=== PATIENT | male | born 1995 | race African-American/Black ===

== ENCOUNTER → 2020-07-20 | Emergency (ER) | payer OTHER ==
[~2020-07-20] VITALS: Ht 172.7 cm; Wt 70.3 kg
[~2020-07-20] MED LIST: HUMALOG100 UNIT/2 SQ; NEXIUM40 MG PO; NOVOLIN N100 UNIT/3 SUBQ; NOVOLIN R100 UNIT/1 SUBQ; NOVOLOG100 UNIT/1 SUBQ; PANTOPRAZOLE SO40 M1 PO; PEPCID20 MG PO; PRILOSEC 20 MG20 MG PO; PROMS25 WY RECTAL; PROTONIX40 MG PO; REGLAN 10 MG TA10 MG PO; REGLAN 5 MG TAB5 MG PO; ZOFRAN ODT4 MG DISSOLVE; ZOFRAN ODT8 MG PO
[2020-07-20 14:01] VITALS: BP 158/103
--- NOTE | 2020-07-21 09:28 | EKG ---
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[facility] : 1995 Requested By: Raysa Cordova Order Number: [id number] MD: Hiram Oh Measurements Intervals [place] Rate: 107 P: 83 [place]: 135 QRS: 72 QRSD: 79 T: 22 QT: 328 QTc: 438 Interpretive Statements Sinus tachycardia Biatrial enlargement Borderline T wave abnormalities ST elev, probable normal early repol pattern Baseline wander in lead(s) V1,V2 Compared to ECG 11/05/2016 10:16:57 Atrial abnormality now present T-wave abnormality now present ST (T wave) deviation now present Sinus rhythm no longer present Electronically Signed On 07-21-2020 9:28:34 CENTRAL OFFICE TECHNICIAN by Hiram Oh [email or web address] <ELECTRONICALLY SIGNED> By: Hiram Oh MD, [facility] 07/21/20 0928 06 140 Hiram Oh MD, [facility] /EPI
== END ==
LOC: ER 13:57
DX: R07.9 Chest pain, unspecified (principal); R11.0 Nausea; Z53.21 Procedure and treatment not carried out due to patient leaving prior to being seen by health care provider

== ENCOUNTER 2020-11-17 10:38 | Inpatient (IN) | payer OTHER ==
[2020-11-17] VITALS (13 sets, daily range): BP systolic 125–180; BP diastolic 79–108
[~2020-11-17] VITALS: Ht 172.7 cm; Wt 76.4 kg
[2020-11-17 11:14] LABS: HEMOGLOBIN 13.5 gm/dL (14.0-18.0); MCH 29.5 pg (26.0-34.0); MCHC 33.7 g/dL (28.0-37.0); MCV 87.5 fL (80.0-100.0); PLATELET COUNT 352 thou/uL (150-400); RBC 4.57 mil/uL (4.50-6.00); WBC 21.8 thou/uL (4.0-11.0)
[2020-11-17 11:17] LABS: ANION GAP 16 mmol/L (7-16); BUN 16 mg/dL (7-18); CHLORIDE 94 mmol/L (98-107); CO2 23 mmol/L (21-32); CREATININE 1.5 mg/dL (0.7-1.3); GLUCOSE 316 mg/dL (74-106); POTASSIUM 3.6 mmol/L (3.5-5.1); SODIUM 133 mmol/L (136-145)
[2020-11-17 11:23] LABS: ALBUMIN 3.8 g/dL (3.4-5.0); AMYLASE 73 U/L (25-115); DIRECT BILIRUBIN 0.2 mg/dL (<0.1-0.2); LIPASE 52 U/L (73-393); SGOT 22 U/L (15-37); SGPT 23 U/L (30-65); TOTAL BILIRUBIN 0.8 mg/dL (0.2-1.0); TOTAL PROTEIN 7.4 g/dL (6.4-8.2)
[2020-11-17 11:24] LABS: BE(vivo) -3.3 mmol/L (-2 to +3); HCO3 20.3 mmol/L (22.0-26.0); PCO2 VENOUS 32.5 mmHg (41.0-51.0); PO2 VENOUS 41.1 mmHg (35.0-45.0)
[2020-11-17 11:27] LABS: URINE BILIRUBIN NEGATIVE (Negative); URINE BLOOD 2+ (Negative); URINE CLARITY CLEAR; URINE COLOR YELLOW; URINE GLUCOSE-RANDOM* 3+ (Negative); URINE KETONES 2+ (Negative); URINE LEUKOCYTES-REFLEX NEGATIVE (Negative); URINE NITRITE-REFLEX NEGATIVE (Negative); URINE PROTEIN (DIPSTICK) 3+ (Negative); URINE SPECIFIC GRAVITY 1.025 (1.005-1.035); URINE UROBILINOGEN 0.2 E.U./dl (0.2-1.0)
[2020-11-17 11:40] LABS: ABSOLUTE NEUTROPHILS 17.9 thou/uL (1.4-8.2)
[2020-11-17 11:41] LABS: ANISOCYTOSIS SLIGHT
[2020-11-17 12:42] LABS: CASTS None Seen /LPF (None Seen); MUCUS 0-3 Light strn/LPF (None Seen); SQUAMOUS 0-3 Few /LPF (0-3)
[2020-11-17 12:43] LABS: BACTERIA-REFLEX None Seen /HPF (None Seen); CRYSTALS None Seen /LPF (None Seen); URINE RBC 3-10 Few /HPF (0-2); URINE WBC-REFLEX 0-5 Rare /HPF (0-5)
[2020-11-17 13:00] LABS: MAGNESIUM 1.6 mg/dL (1.8-2.4); PHOSPHORUS 3.6 mg/dL (2.6-4.7)
--- NOTE | 2020-11-17 14:30 | NUR ---
PT RECEIVED FROM THE ED VIA THIS RN AND CANDY BAR ATTENDANT ESCORT, PRIOR TO ADMISSION TO ICU, PT HAD REFCEIVED HALDOL FROM ED R/T NAUSEA&HICCUPS PT HAS SINCE BEEN ASLEEP AND HAS BEEN SLEEPING SINCE THEN, DROWSY OF NOW. BLOOD SUGAR UPON ADMISSION TO ICU WAS 348 AND DKA PROTOCOL HAS BEEN INITIATED. PT'S GRANDFATHER FRANCISCO MARTINEZ HAD CALLED AND STATED THAT HE WILL BE THE DESIGNATED PERSONEL FOR THE PT. FRANCISCO INQUIRED WHETHER PT WOULD BE DISCHARGING TODAY TO WHICH RN STATED THAT PT HAS JUST BEEN ADMITTED SO IT WILL HAVE TO BE CONSIDERED AT A LATER TIME. PT HAS BEEN KNOWN TO BEEN SENT HOME FROM [facility] YESTERDAY FOR DKA. RN WILL UPDATE NEEDED
[2020-11-17 15:10] LABS: ANION GAP 14 mmol/L (7-16); BUN 19 mg/dL (7-18); CALCIUM 8.4 mg/dL (8.5-10.1); CHLORIDE 98 mmol/L (98-107); CO2 22 mmol/L (21-32); CREATININE 1.4 mg/dL (0.7-1.3); GLUCOSE 352 mg/dL (74-106); POTASSIUM 4.1 mmol/L (3.5-5.1); SODIUM 134 mmol/L (136-145)
[2020-11-17 15:20] LABS: ALBUMIN 3.5 g/dL (3.4-5.0); MAGNESIUM 1.6 mg/dL (1.8-2.4); PHOSPHORUS 3.6 mg/dL (2.6-4.7); TROPONIN-I <0.06 ng/mL (<0.06)
[2020-11-17 19:39] LABS: CALCIUM 8.6 mg/dL (8.5-10.1); CREATININE 1.3 mg/dL (0.7-1.3); POTASSIUM 3.5 mmol/L (3.5-5.1)
[2020-11-17 19:43] LABS: ALBUMIN 3.3 g/dL (3.4-5.0); MAGNESIUM 2.7 mg/dL (1.8-2.4); PHOSPHORUS 3.2 mg/dL (2.6-4.7)
--- NOTE | 2020-11-17 20:27 | NUR ---
1923 BG 60, CORRECTED WITH 1/2 AMP DEXTROSE AND TURNED INSULIN GT OFF, RECHECK 116, NOTIFIED ABDIEL ROBISON NP OF 1900 LABS AND INTERVENTIONS FOR BG. ANION GAP CLOSED, TO KEEP D5 1/2NS GTT INFUSING AT THIS TIME, KEEP INSULIN OFF, MONIOR BG AND CALL IF NEED TO SWITCH FLUIDS TO NON DEXTROSE CONTAINING FLUIDS.
[2020-11-17 23:31] LABS: CALCIUM 8.4 mg/dL (8.5-10.1); CREATININE 1.4 mg/dL (0.7-1.3); POTASSIUM 4.1 mmol/L (3.5-5.1)
[2020-11-17 23:35] LABS: ALBUMIN 3.3 g/dL (3.4-5.0); MAGNESIUM 2.3 mg/dL (1.8-2.4); PHOSPHORUS 3.7 mg/dL (2.6-4.7)
[2020-11-18] VITALS (23 sets, daily range): BP systolic 138–188; BP diastolic 78–116
--- NOTE | 2020-11-18 00:25 | NUR ---
CALL TO BING PERDOMO REGARDING INCREASE IN BG, RECOMMENDING STOPPING DEXTROSE FLUIDS AND ASKING FOR ANOHER FLUID ORDER. DISCUSSION REGARDING PT IRRECTRACTABLE NAUSEA/"BURPING" AND CURRENT ORDERS FOR IT. PT WAS LETHARGIC AND DROWSY FROM [id number], DIFFICULT TO ROUSE AFTER RECIEVING HALDOL PRIOR TO THIS RN ASSUMING CARE. CONCERN FOR GIVING 5MG IV HALDOL TO FURTHER SEDATE PT. ORDERS RECIEVED FOR HALDOL X1, KUB ORDER, NS AND SS INSULIN PLUS PT HOME LONG ACTING INSULIN
[2020-11-18 03:57] LABS: PROTIME 11.2 Seconds (9.3-11.4)
[2020-11-18 04:08] LABS: ALBUMIN 3.4 g/dL (3.4-5.0); CALCIUM 8.5 mg/dL (8.5-10.1); CREATININE 1.4 mg/dL (0.7-1.3); POTASSIUM 4.2 mmol/L (3.5-5.1); TOTAL BILIRUBIN 0.7 mg/dL (0.2-1.0); TOTAL PROTEIN 6.7 g/dL (6.4-8.2)
[2020-11-18 04:56] LABS: ABSOLUTE NEUTROPHILS 17.1 thou/uL (1.4-8.2); BASOPHILS 0.2 % (0.0-2.0); EOSINOPHILS 0.1 % (0.0-3.0); HEMATOCRIT 38.9 % (42.0-52.0); MCH 29.8 pg (26.0-34.0); MCHC 33.4 g/dL (28.0-37.0); MCV 89.5 fL (80.0-100.0); MONOCYTES 3.5 % (1.0-8.0); PLATELET COUNT 298 thou/uL (150-400); POLYS 88.2 % (36.0-66.0); RBC 4.35 mil/uL (4.50-6.00); RDW 12.9 % (10.5-14.5); WBC 19.4 thou/uL (4.0-11.0)
[2020-11-18 07:32] LABS: ALBUMIN 3.1 g/dL (3.4-5.0); CALCIUM 8.5 mg/dL (8.5-10.1); CREATININE 1.3 mg/dL (0.7-1.3); PHOSPHORUS 3.2 mg/dL (2.6-4.7)
[2020-11-18 07:34] LABS: POTASSIUM 4.2 mmol/L (3.5-5.1)
--- NOTE | 2020-11-18 08:19 | NUR ---
PER LAST NIGHT'S RN DKA PROTOCOL WAS STOPPED APPROXIMATELY AROUND 1900 D/T LOW BLOOD SUGAR LEVEL WELL ANION GAP OF 6. D5 .45NS WAS CONTINUED THEN PT BECAME MORE HYPERGLYCEMIC TOWARDS 0000, D5 FLUID WAS STOPPED, NS WAS STARTED AT 100 AND INSULIN NPH & LISPRO WAS STARTED AND ADMINSTERED. SINCE THEN, PT'S ANION GAP HAS BEEN INCREASING AND IT WAS UNDERTERMINABLE WHETHER DKA PROTOCOL SHOULD BE RESUMED OR NOT. 0800 - 0700 MORNING RESULT CAME BACK, THE POC BG WAS 189, ANION GAP WAS LESS THAN 12, AND SERUM BICARB WAS GREATER THAN 15. PER PROTOCOL DKA IS RESOLVED. RN UPDATED , PER MD IT IS OK FOR PT TO TRANSFER OUT IF SERUM ACETONE LEVEL COMES BACK NORMAL. RN TO CONTINUE MONITORING. NO OVERNIGHT EMESIS, THOUGH DRY HEAVING PRESENT, PT DOES NOT COMPLAIN OF ABD PX EVEN WITH PALPATION, OTHER SYSTEMS WDL.
--- NOTE | 2020-11-18 10:16 | EKG ---
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
[2020-11-18 19:39] LABS: CALCIUM 8.2 mg/dL (8.5-10.1); CREATININE 1.2 mg/dL (0.7-1.3); PHOSPHORUS 2.3 mg/dL (2.6-4.7); POTASSIUM 3.4 mmol/L (3.5-5.1)
[2020-11-19] VITALS (8 sets, daily range): BP systolic 122–184; BP diastolic 78–112
[2020-11-19 01:55] LABS: ABSOLUTE NEUTROPHILS 12.9 thou/uL (1.4-8.2); BASOPHILS 0.4 % (0.0-2.0); EOSINOPHILS 0.6 % (0.0-3.0); HEMATOCRIT 37.9 % (42.0-52.0); HEMOGLOBIN 12.8 gm/dL (14.0-18.0); LYMPHOCYTES 13.4 % (24.0-44.0); MCH 29.8 pg (26.0-34.0); MCHC 33.8 g/dL (28.0-37.0); MCV 88.3 fL (80.0-100.0); MONOCYTES 7.8 % (1.0-8.0); PLATELET COUNT 294 thou/uL (150-400); POLYS 77.8 % (36.0-66.0); RDW 12.7 % (10.5-14.5); WBC 16.6 thou/uL (4.0-11.0)
[2020-11-19 02:19] LABS: ALBUMIN 3.1 g/dL (3.4-5.0); CALCIUM 8.3 mg/dL (8.5-10.1); CREATININE 1.1 mg/dL (0.7-1.3); MAGNESIUM 1.7 mg/dL (1.8-2.4); PHOSPHORUS 2.9 mg/dL (2.6-4.7); POTASSIUM 4.2 mmol/L (3.5-5.1); TOTAL BILIRUBIN 0.5 mg/dL (0.2-1.0); TOTAL PROTEIN 5.7 g/dL (6.4-8.2)
[2020-11-19 03:05] LABS: GLYCOHEMOGLOBIN (HGB A1C) 8.4 % (4.8-5.6)
--- NOTE | 2020-11-19 08:13 | NUR ---
0805 PT STATED, "I AM READY TO LEAVE AMA." THIS NURSE DISCUSSED W/PT POSSIBLE CONS OF LEAVING AGAINST MEDICAL ADVICE. PT STATED HE WOULD WAIT, "A COUPLE MORE HOURS," IN HOPES TO SEE A PHYSICIAN BEFORE LEAVING. PT ALSO REFUSED AM PO MEDS WELL.
[2020-11-19] MEDS ORDERED: ZOFRAN 4 MG ORAL4 MG PO (09:13)
[2020-11-19] MEDS ORDERED: PROTONIX40 M3 PO (09:13)
[2020-11-19] MEDS ORDERED: COREG6.25 MG PO (09:13)
--- NOTE | 2020-11-19 10:30 | NUR ---
discussed during rounds, he had already left AMA.
--- NOTE | 2020-11-19 12:49 | CRIT ---
[facility] [place] [address] CRITICAL CARE NOTE Name: RENEE MARTINEZ Room #: 239-P [facility] IN M.R.#: [id number] Admission: 11/17/20 Attend Phys: Halina Gee MD Discharge: 11/19/20 Date of : [birth year] Report #: [id number] THIS REPORT FOR: cc: FAM - No family physician/PCP FAM - No family physician/PCP Airel Jarrell MD ~ DATE OF SERVICE: 11/18/2020 HISTORY OF PRESENT ILLNESS: The patient is a 24-year-old -[place] male, I have been asked to see for further evaluation of his GI symptoms including nausea, vomiting, dry heaves and some hematemesis after retching. The patient presents with diabetic ketoacidosis and refractory nausea and vomiting. His medications at home include only insulin. He has been on metoclopramide in the past. PAST MEDICAL HISTORY: Notable for type 1 diabetes, gastroesophageal reflux disease, and cannabinoid dependence. FAMILY HISTORY: Noncontributory. SOCIAL HISTORY: He drinks no alcohol and smokes marijuana daily. REVIEW OF SYSTEMS: The patient denies head, eyes, ears, nose, or throat complaints. Denies chest pain, chest palpitation, chest pressure, cough, shortness of breath, wheezing, genitourinary, musculoskeletal, or neuropsychiatric complaints. PHYSICAL EXAMINATION: VITAL SIGNS: Afebrile, vital signs stable. HEENT: Nonicteric. NECK: No JVD, thyromegaly or bruits. CARDIOVASCULAR: Regular. LUNGS: Clear. ABDOMEN: Soft, nondistended, nontender, normoactive bowel sounds. No hepatosplenomegaly. No stigmata of chronic liver disease. No abnormal masses or bruits. EXTREMITIES: No clubbing, cyanosis, or edema. NEUROLOGIC: Deferred. RECTAL: Deferred. PERTINENT LABORATORY DATA: Include serum chemistry notable for sodium 135, glucose 208. Lipase 52, which is low. Venous bicarbonate 24. Liver tests normal. Acetone greater than 2 on presentation. INR 1.0. White count 19.4, hemoglobin 13.0, platelet count 298. He has no left shift. Hemoglobin A1c 8.4. Other imaging, KUB, nonobstructive bowel gas pattern. Chest x-ray, no acute process. [address] [address] CRITICAL CARE NOTE Name: RENEE MARTINEZ TRINITYMIHarshad Room #: [address] [place] [address] [place] [facility].#: [id number] Admission: 11/17/20 Attend Phys: Halina Gee MD Discharge: 11/19/20 Date of : [birth year] Report #: [id number] ASSESSMENT AND PLAN: In summary, the patient presents with diabetic ketoacidosis, abdominal pain, nausea and vomiting and scant hematemesis, most likely secondary to Elisa-Blair tear. He has had refractory nausea and vomiting. He does use marijuana on a daily basis, which certainly can cause cannabinoid hyperemesis syndrome. At this point, I would proceed with IV PPI therapy, slowly reintroduce food and abstain from marijuana. He has had diabetes for 17 years, but does not have peripheral neuropathy. If his nausea and vomiting persist, consideration of a gastric emptying time would be reasonable. At this point, I would just opt for treating him from a symptomatic standpoint. Again, I appreciate the opportunity to participate in his care. We will follow concurrently. <ELECTRONICALLY SIGNED> By: Jhoanthan Treadwell MD 11/19/20 1249 1450 [id number] Ariel Jarrell MD /nt
== END 2020-11-19 09:30 | disposition left against medical advice (07) | DRG 638 ==
LOC: ER 10:38 → EROBS 12:49 → ICU 13:13
PROVIDERS: Emergency Medicine; ADMIT Internal Medicine; ATTEND Internal Medicine
DX: E10.10 Type 1 diabetes mellitus with ketoacidosis without coma (principal); K92.0 Hematemesis; N17.9 Acute kidney failure, unspecified; K21.9 Gastro-esophageal reflux disease without esophagitis; F12.21 Cannabis dependence, in remission; R07.9 Chest pain, unspecified; E83.42 Hypomagnesemia; F17.200 Nicotine dependence, unspecified, uncomplicated; D72.829 Elevated white blood cell count, unspecified; E86.0 Dehydration; Z53.21 Procedure and treatment not carried out due to patient leaving prior to being seen by health care provider; Z79.4 Long term (current) use of insulin; Z79.899 Other long term (current) drug therapy; Z91.14 Patient's other noncompliance with medication regimen; Z82.49 Family history of ischemic heart disease and other diseases of the circulatory system; Z28.89 Immunization not carried out for other reason
CPT/HCPCS: 10078